=== PATIENT | female | born 1960 | race Hispanic/Latino ===

== ENCOUNTER 2023-12-12 14:07 | Outpatient (CLI) | payer OTHER | END 2023-12-12 14:08 | disposition home or self-care (01) | LOC: BICMAMMO 14:07 | PROVIDERS: ATTEND Family Medicine | DX: Z12.31 Encounter for screening mammogram for malignant neoplasm of breast (principal) | CPT/HCPCS: 77063; 77067 ==

== ENCOUNTER 2025-06-22 17:37 | Inpatient (IN) | payer OTHER ==
[~2025-06-22 17:37] MED LIST: Iopamidol-370 76% 500 ML MDV (1 ML CHARGE) ONE
[2025-06-22] MEDS ORDERED: Ondansetron PF 4 MG/2 ML Vial ONE ×2 (18:35→21:01)
[2025-06-22 18:39] LABS: Hematocrit 25.7 % (36.0-47.0); Hemoglobin 8.6 g/dL (12.0-16.0); Mean Corpuscular Hemoglobin 38.9 pg (27.0-31.0); Mean Corpuscular Volume 116.3 fL (78.0-98.0); Platelet Count 11 10x3/uL (130-400); Red Blood Cell (RBC) Count 2.21 mill/uL (4.20-5.40); White Blood Cell (WBC) Count 5.15 10x3/uL (4.8-10.8)
[2025-06-22 18:54] LABS: ALT (SGPT) 34 U/L (Less than 34); AST (SGOT) 96 U/L (11-34); Albumin 2.0 g/dL (3.1-4.5); Alkaline Phosphatase 261 U/L (40-110); Anion Gap 13 mmol/L (10-20); BUN (Urea Nitrogen) 17 mg/dL (9.8-20.1); Bilirubin, Total 6.2 mg/dL (0.3-1.2); Calc. Creatinine Clearance 0 mL/min (70-130); Calcium 7.4 mg/dL (7.8-10.44); Carbon Dioxide 18 mmol/L (23-31); Chloride 106 mmol/L (98-107); Globulin 4.7 g/dL (2.4-3.5); Glucose 97 mg/dL (80-115); Lipase 79 U/L (8-78); Potassium 5.1 mmol/L (3.5-5.1); Sodium 132 mmol/L (136-145)
[2025-06-22 19:24] LABS: Macrocytosis MODERATE=16-30 cells (100X) (0-5/hpf); Plasma Cells 0 % (0-0); Platelet Adequacy Comment Appears Decreased
[2025-06-22] MEDS ORDERED: Lidocaine 1% (PF) 30 ML VIAL ONE (19:37)
[2025-06-22 20:15] LABS: Magnesium 1.6 mg/dL (1.6-2.6)
[2025-06-22 20:40] LABS: INR-International Normal Ratio 1.5; Prothrombin Time 17.9 sec (12.0-14.7)
[2025-06-22 20:41] LABS: PTT 32.3 sec (22.9-36.1)
[2025-06-22] MEDS ORDERED: Pantoprazole 40 MG VIAL ONE (21:20)
[2025-06-22] MEDS ORDERED: Octreotide Acetate 1,250 MCG in Sodium Chloride 0.9% 250 ML 250 ML IVPB SCH (21:45)
[2025-06-22 21:53] LABS: RBC Count-Automated (BF) 38 /cu.mm; WBC/Nucleated-Auto (BF) 95 /cu.mm
[2025-06-22 22:15] LABS: BF Segmented Neutrophils 16 %; Cell Count Non Hematic 68 %
[2025-06-22] MEDS ORDERED: Ondansetron PF 4 MG/2 ML Vial IVP PRN (22:42)
[2025-06-22] MEDS ORDERED: Electrolyte Replacement Protocol 1 EACH FS PRN ×2 (22:45→23:00)
[2025-06-22] MEDS ORDERED: Pantoprazole 80 MG, Admixture Fee 1 EACH in Sodium Chloride 0.9% 100 ML IVPB SCH (23:00)
[2025-06-23 00:11] VITALS: BMI 26.9
[2025-06-23] MEDS: cefTRIAXone\\ROCEPHIN 2 GM in Sodium Chloride 0.9% 100 ML IVPB SCH (00:29)
[2025-06-23] MEDS: Magnesium 2 GM/50 ML(in water) 2 GM in Premix 1 BAG IVPB SCH (00:29)
[2025-06-23 04:10] LABS: INR-International Normal Ratio 1.4; Prothrombin Time 17.3 sec (12.0-14.7)
[2025-06-23 04:53] LABS: ALT (SGPT) 28 U/L (Less than 34); AST (SGOT) 65 U/L (11-34); Albumin 1.8 g/dL (3.1-4.5); Alkaline Phosphatase 219 U/L (40-110); Anion Gap 12 mmol/L (10-20); BUN (Urea Nitrogen) 15 mg/dL (9.8-20.1); Bilirubin, Total 6.1 mg/dL (0.3-1.2); Calc. Creatinine Clearance 161 mL/min (70-130); Calcium 7.2 mg/dL (7.8-10.44); Carbon Dioxide 18 mmol/L (23-31); Chloride 107 mmol/L (98-107); Globulin 4.0 g/dL (2.4-3.5); Glucose 116 mg/dL (80-115); Iron 146 ug/dL (50-170); Iron Binding Capacity, Total 141 mcg/dL (265-497); Potassium 4.3 mmol/L (3.5-5.1); Sodium 133 mmol/L (136-145)
[2025-06-23 05:02] LABS: Hep A IgM AB NONREACTIVE (NonReactive); Hep A IgM S/CO 0.16 S/CO (0-0.79); Hep B Core IgM Index 0.08 S/CO (0-0.79); Hep B Surf Ag NONREACTIVE S/CO (NonReactive)
[2025-06-23 05:25] LABS: Hep C Index 0.11 S/CO (0-0.79)
[2025-06-23 05:30] LABS: #Basophils 0.03 10x3/uL (0.0-0.2); #Eosinophils 0.04 10x3/uL (0.0-0.7); #Monocytes 0.58 10x3/uL (0.11-0.59); #Neutrophils 3.18 10x3/uL (1.40-6.50); %Basophils 0.6 % (0.0-1.0); %Eosinophils 0.8 % (0.0-10.0); %Lymphocytes 23.2 % (21.0-51.0); %Monocytes 11.6 % (0.0-10.0); %Neutrophils 63.6 % (42.0-75.0); Hematocrit 24.7 % (36.0-47.0); Hemoglobin 8.6 g/dL (12.0-16.0); Mean Corpuscular Hemoglobin 37.9 pg (27.0-31.0); Mean Corpuscular Volume 108.8 fL (78.0-98.0); Platelet Count 76 10x3/uL (130-400); Red Blood Cell (RBC) Count 2.27 mill/uL (4.20-5.40); White Blood Cell (WBC) Count 5.00 10x3/uL (4.8-10.8)
[2025-06-23 05:49] LABS: Hep C IgG Ab NONREACTIVE S/CO (NonReactive)
[2025-06-23] MEDS ORDERED: PROPOFOL 60 ML ONE (07:59)
[2025-06-23] MEDS ORDERED: Lidocaine 1% PF 5 ML VIAL ONE (07:59)
[2025-06-23] MEDS ORDERED: PHENYLEPHRINE-NS 100 MCG/ML 10 ML SYRINGE ONE (08:20)
[2025-06-23] MEDS: Folic Acid 1 MG TAB PO SCH (09:08)
[2025-06-23] MEDS: PNEUMOC 20-VAL CONJ-DIP CRM/PF 0.5 ML SYRINGE IM ONE (09:09)
[2025-06-23] MEDS: Multivit, Therapeutic 1 TAB PO SCH (09:09)
[2025-06-23] MEDS: Mupirocin 1 GM TUBE NASAL DECOLONIZATION NASAL SCH (09:39)
[2025-06-23] MEDS: Pantoprazole 40 MG VIAL IVP SCH (09:39)
[2025-06-23] MEDS: Albumin 25% 25 GM (100 mL) BOT IVPB SCH (12:07)
[2025-06-23 18:58] LABS: Bacteria/HPF None Seen HPF (None Seen); CAUTI Indications for Culture Fever or rigors; Glucose, Urine (Dipstick) Normal (Negative); Leukocyte Negative Leu/uL (Negative); Protein, Urine (Dipstick) Negative (Neg-Trace); RBC/HPF 0-3 HPF (0-3); Specific Gravity, Urine 1.032 (1.002-1.036); WBC/HPF 0-3 HPF (0-3)
[2025-06-23 19:12] LABS: Urine Culture Reflex No No
[2025-06-23] MEDS: Octreotide Acetate 1,250 MCG in Sodium Chloride 0.9% 250 ML 250 ML IVPB SCH (21:28)
[2025-06-24] MEDS: Simethicone Chewable 80 MG TAB PO PRN (00:34)
[2025-06-24 03:57] LABS: #Basophils 0.04 10x3/uL (0.0-0.2); #Eosinophils 0.18 10x3/uL (0.0-0.7); #Monocytes 0.45 10x3/uL (0.11-0.59); #Neutrophils 1.67 10x3/uL (1.40-6.50); %Basophils 1.2 % (0.0-1.0); %Eosinophils 5.3 % (0.0-10.0); %Lymphocytes 30.5 % (21.0-51.0); %Monocytes 13.3 % (0.0-10.0); %Neutrophils 49.4 % (42.0-75.0); Hematocrit 22.1 % (36.0-47.0); Hemoglobin 7.7 g/dL (12.0-16.0); Mean Corpuscular Hemoglobin 37.7 pg (27.0-31.0); Mean Corpuscular Volume 108.3 fL (78.0-98.0); Platelet Count 67 10x3/uL (130-400); Red Blood Cell (RBC) Count 2.04 mill/uL (4.20-5.40); White Blood Cell (WBC) Count 3.38 10x3/uL (4.8-10.8)
[2025-06-24 04:03] LABS: ALT (SGPT) 18 U/L (Less than 34); AST (SGOT) 47 U/L (11-34); Albumin 2.5 g/dL (3.1-4.5); Alkaline Phosphatase 147 U/L (40-110); Anion Gap 9 mmol/L (10-20); BUN (Urea Nitrogen) 11 mg/dL (9.8-20.1); Bilirubin, Total 4.8 mg/dL (0.3-1.2); Calc. Creatinine Clearance 132 mL/min (70-130); Calcium 7.2 mg/dL (7.8-10.44); Carbon Dioxide 23 mmol/L (23-31); Chloride 109 mmol/L (98-107); Globulin 2.5 g/dL (2.4-3.5); Glucose 113 mg/dL (80-115); Potassium 3.7 mmol/L (3.5-5.1); Sodium 137 mmol/L (136-145)
[2025-06-24] MEDS: Pantoprazole 40 MG VIAL IVP SCH (08:51)
[2025-06-24 11:54] LABS: EliA Vaculitis New Method **** NEW METHOD ****; Mitochondrial Ab 1.6 U/mL (<4 Negative)
[2025-06-24] MEDS: cefTRIAXone\\ROCEPHIN 2 GM in Sodium Chloride 0.9% 100 ML IVPB SCH (23:20)
[2025-06-25 05:39] LABS: ALT (SGPT) 22 U/L (Less than 34); AST (SGOT) 64 U/L (11-34); Albumin 2.6 g/dL (3.1-4.5); Alkaline Phosphatase 160 U/L (40-110); Anion Gap 11 mmol/L (10-20); BUN (Urea Nitrogen) 7 mg/dL (9.8-20.1); Bilirubin, Total 5.5 mg/dL (0.3-1.2); Calc. Creatinine Clearance 139 mL/min (70-130); Calcium 7.8 mg/dL (7.8-10.44); Carbon Dioxide 24 mmol/L (23-31); Chloride 106 mmol/L (98-107); Globulin 3.0 g/dL (2.4-3.5); Glucose 88 mg/dL (80-115); Potassium 4.0 mmol/L (3.5-5.1); Sodium 137 mmol/L (136-145)
[2025-06-25 05:58] LABS: #Basophils 0.06 10x3/uL (0.0-0.2); #Eosinophils 0.30 10x3/uL (0.0-0.7); #Monocytes 0.46 10x3/uL (0.11-0.59); #Neutrophils 2.11 10x3/uL (1.40-6.50); %Basophils 1.4 % (0.0-1.0); %Eosinophils 6.9 % (0.0-10.0); %Lymphocytes 32.4 % (21.0-51.0); %Monocytes 10.6 % (0.0-10.0); %Neutrophils 48.5 % (42.0-75.0); Hematocrit 26.8 % (36.0-47.0); Hemoglobin 9.2 g/dL (12.0-16.0); Mean Corpuscular Hemoglobin 38.0 pg (27.0-31.0); Mean Corpuscular Volume 110.7 fL (78.0-98.0); Platelet Count 77 10x3/uL (130-400); Red Blood Cell (RBC) Count 2.42 mill/uL (4.20-5.40); White Blood Cell (WBC) Count 4.35 10x3/uL (4.8-10.8)
[2025-06-25 08:21] VITALS: TEMP 98.1
[2025-06-25 12:24] VITALS: BP 93/56
[2025-06-25] MEDS ORDERED: Thiamine 100 MG TAB PO SCH (23:00)
== END 2025-06-25 15:08 | disposition home or self-care (01) | DRG 432 ==
LOC: ERS 17:37 → CCU 22:49 → T4-A 06-24 16:40
PROVIDERS: ADMIT Student in an Organized Health Care Education/Training Program; ATTEND Internal Medicine
PROC: 3E03329 Introduction of Other Anti-infective into Peripheral Vein, Percutaneous Approach (ICD-10-PCS; 2025-06-22)
PROC: 30233R1 Transfusion of Nonautologous Platelets into Peripheral Vein, Percutaneous Approach (ICD-10-PCS; 2025-06-22)
PROC: 30233N1 Transfusion of Nonautologous Red Blood Cells into Peripheral Vein, Percutaneous Approach (ICD-10-PCS; 2025-06-22)
PROC: 0W3P8ZZ Control Bleeding in Gastrointestinal Tract, Via Natural or Artificial Opening Endoscopic (ICD-10-PCS; principal; 2025-06-23)
PROC: 30233J1 Transfusion of Nonautologous Serum Albumin into Peripheral Vein, Percutaneous Approach (ICD-10-PCS; 2025-06-23)
PROC: 0W9G3ZZ Drainage of Peritoneal Cavity, Percutaneous Approach (ICD-10-PCS; 2025-06-24)
DX: K70.31 Alcoholic cirrhosis of liver with ascites (principal); I85.11 Secondary esophageal varices with bleeding; D62 Acute posthemorrhagic anemia; E87.1 Hypo-osmolality and hyponatremia; K76.6 Portal hypertension; D64.9 Anemia, unspecified; D69.6 Thrombocytopenia, unspecified; K70.40 Alcoholic hepatic failure without coma; K31.89 Other diseases of stomach and duodenum; F10.10 Alcohol abuse, uncomplicated; Z79.899 Other long term (current) drug therapy
CPT/HCPCS: 36415; 36430; 49082; 74174; 74177; 80053; 80074; 81001; 82042; 82105; 82140; 82150; 82248; 82390; 82525; 82728; 82945; 83516; 83540; 83550; 83605; 83615; 83690; 83735; 84100; 84157; 85025; 85060; 85610; 85730; 86015; 86850; 86900; 86901; 87040; 87070; 87205; 89051; 96374; 96375; 96376; J0696; J2270; J2354; J2405; J2470; J2704; J3010; J3411; J3475; J7050; P9016; P9035; P9047; Q9967

== ENCOUNTER 2025-06-30 20:33 | Emergency (ER) | payer OTHER ==
[2025-06-30] MEDS ORDERED: Ondansetron PF 4 MG/2 ML Vial ONE (21:51)
[2025-06-30 22:21] LABS: Bacteria/HPF None Seen HPF (None Seen); CAUTI Indications for Culture Pelvic or flank pain; Glucose, Urine (Dipstick) Normal (Negative); Leukocyte Negative Leu/uL (Negative); Protein, Urine (Dipstick) Negative (Neg-Trace); RBC/HPF 0-3 HPF (0-3); Specific Gravity, Urine 1.006 (1.002-1.036); WBC/HPF None Seen HPF (0-3)
[2025-06-30 22:23] LABS: Urine Culture Reflex No No
[2025-06-30 22:23] LABS: #Basophils 0.06 10x3/uL (0.0-0.2); #Eosinophils 0.20 10x3/uL (0.0-0.7); #Monocytes 0.81 10x3/uL (0.11-0.59); #Neutrophils 2.17 10x3/uL (1.40-6.50); %Basophils 1.3 % (0.0-1.0); %Eosinophils 4.2 % (0.0-10.0); %Lymphocytes 31.7 % (21.0-51.0); %Monocytes 16.9 % (0.0-10.0); %Neutrophils 45.1 % (42.0-75.0); Hematocrit 25.9 % (36.0-47.0); Hemoglobin 9.3 g/dL (12.0-16.0); Mean Corpuscular Hemoglobin 38.3 pg (27.0-31.0); Mean Corpuscular Volume 106.6 fL (78.0-98.0); Platelet Count 67 10x3/uL (130-400); Red Blood Cell (RBC) Count 2.43 mill/uL (4.20-5.40); White Blood Cell (WBC) Count 4.80 10x3/uL (4.8-10.8)
[2025-06-30 22:30] LABS: INR-International Normal Ratio 1.5; PTT 37.8 sec (22.9-36.1); Prothrombin Time 18.1 sec (12.0-14.7)
[2025-06-30 23:44] LABS: ALT (SGPT) 34 U/L (Less than 34); AST (SGOT) 88 U/L (11-34); Albumin 2.2 g/dL (3.1-4.5); Alkaline Phosphatase 219 U/L (40-110); Anion Gap 12 mmol/L (10-20); BUN (Urea Nitrogen) 5 mg/dL (9.8-20.1); Bilirubin, Total 5.2 mg/dL (0.3-1.2); Calc. Creatinine Clearance 0 mL/min (70-130); Calcium 7.7 mg/dL (7.8-10.44); Carbon Dioxide 21 mmol/L (23-31); Chloride 107 mmol/L (98-107); Globulin 3.3 g/dL (2.4-3.5); Glucose 80 mg/dL (80-115); Lipase 74 U/L (8-78); Magnesium 1.6 mg/dL (1.6-2.6); Potassium 3.8 mmol/L (3.5-5.1); Sodium 136 mmol/L (136-145)
== END 2025-07-01 01:05 | disposition home or self-care (01) ==
LOC: ERS 20:33
DX: K70.31 Alcoholic cirrhosis of liver with ascites (principal); R50.9 Fever, unspecified
CPT/HCPCS: 36415; 71045; 74177; 80053; 81001; 83605; 83690; 83735; 83880; 84484; 85025; 85610; 85730; 86850; 86900; 86901; 87428; 93005; 96374; 96375; J2405; J3010

== ENCOUNTER 2025-08-19 10:03 | Day surgery (SDC) | payer OTHER ==
[2025-08-16 12:13] VITALS: BMI 22.8
[2025-08-19] MEDS ORDERED: GLYCOPYRROLATE/PF 0.2 MG/ML VIAL ONE (12:27)
[2025-08-19] MEDS ORDERED: PHENYLEPHRINE-NS 100 MCG/ML 10 ML SYRINGE ONE (12:46)
[2025-08-19] MEDS ORDERED: PROPOFOL 200 MG/20 ML VIAL ONE (12:48)
[2025-08-19] MEDS ORDERED: Metoprolol Tartrate 5 MG (5 mL) VIAL ONE (13:04)
[2025-08-19] MEDS ORDERED: CEFAZOLIN 1 GM VIAL ONE (13:09)
== END 2025-08-19 14:58 | disposition home or self-care (01) ==
LOC: SDC 10:03
PROVIDERS: ATTEND Internal Medicine Gastroenterology
DX: Z12.11 Encounter for screening for malignant neoplasm of colon (principal); K74.60 Unspecified cirrhosis of liver; I85.10 Secondary esophageal varices without bleeding; K64.8 Other hemorrhoids; K76.6 Portal hypertension; K31.89 Other diseases of stomach and duodenum; Z86.0100 Personal history of colon polyps, unspecified
CPT/HCPCS: J0690; J2704; J3490